=== PATIENT | female | born 1980 | race Caucasian/White ===

== ENCOUNTER 2019-09-20 08:47 | Emergency (ER) | payer OTHER, MEDICAID, SELFPAY ==
--- NOTE | ~2019-09-20 | XR_ITS ---
EXAMINATION: XR chest 2V DATE: 09/20/2019 09:02 INDICATION: Shortness of breath. Chest tightness. TECHNIQUE: Frontal and lateral views of the chest were obtained. COMPARISON: None. FINDINGS: The chest demonstrates clear lungs without pneumonia, pleural effusion, or pneumothorax. Th e heart size is normal. IMPRESSION: 1. No acute cardiopulmonary disease. Reviewed, dictated and finalized at location A.
[2019-09-20 08:50] VITALS: BP 135/82; PULSE 83; RESP 16; TEMP 36.5; O2SAT 100
--- NOTE | 2019-09-20 08:50 | ECG_ITS ---
Measurements Intervals Dana Rate: 78 P: -3 ME: 144 QRS: -9 QRSD: 98 T: -5 QT: 365 QTc: 416 Interpretive Statements SINUS RHYTHM VOLTAGE CRITERIA FOR LVH BORDERLINE T WAVE ABNORMALITY- INFERIOR LEADS BORDERLINE ECG Electronically Signed On 09-20-2019 8:57:45 CDT by Esau Saxena D.O.
[2019-09-20 09:03] LABS: Basophils Percent Auto 0.4 % (0.2-1.2); Eosinophils Percent Auto 0.3 % (0-4.4); Hematocrit 42.1 % (37.0-47.0); Hemoglobin 13.9 g/dL (12.0-15.0); Immature Granulocyte Absolute 0.02 K/mm3 (0.00-0.031); Immature Granulocyte Percent A 0.3 % (0-0.5); Lymphocytes Absolute Auto 1.94 K/mm3 (0.9-3.2); Lymphocytes Percent Auto 27.6 % (18.3-44.2); Mean Corpuscular Volume 87.7 fl (80-100); Mean Platelet Volume 9.9 fl (7.4-10.4); Monocytes Absolute Auto 0.3 K/mm3 (0.1-0.6); Monocytes Percent Auto 3.8 % (2.6-8.5); Neutrophils Absolute Auto 4.7 K/mm3 (1.3-6.7); Neutrophils Percent Auto 67.6 % (45.5-73.1); Platelet Count Result 292 k/mm3 (150-375); Red Cell Distribution Width 12.7 % (11.5-14.5)
[2019-09-20 09:13] LABS: Prothrombin Time 12.7 Seconds (11.1-14.7)
[2019-09-20 09:14] LABS: Blood Urea Nitrogen 10 mg/dL (7-17); Carbon Dioxide 25 mmol/L (22-30); Chloride 104 mmol/L (98-107); Estimated Glomerular Filt Rate > 60; Glucose 145 mg/dL (65-105); Partial Thromboplastin Time 25.8 SECONDS (22.3-36.8); Potassium 3.4 mmol/L (3.4-5.0); Sodium 139 mmol/L (137-145)
[2019-09-20 09:25] LABS: Troponin I < 0.012 ng/mL (0.000-0.034)
[2019-09-20] MEDS: BELLADONNA ALK/PHENOB ELIX 10 ML, MAG HYDROX/ALUMINUM HYD/SIMETH 30 ML, LIDOCAINE HCL 2... PO (09:34)
--- NOTE | 2019-09-20 10:02 | ED.SOB ---
HPI - SOB/Dyspnea General Chief Complaint: Shortness of Breath/Dyspnea Stated Complaint: SOB Time Seen by Provider: 09/20/19 08:48 History of Present Illness HPI Narrative: Patient is a 38-year-old female who presents the ER with chest pain. Intermittent over the last 2 days associated with shortness of breath. Reports the pain is burning and central. It was worse with laying down last night. No sweats or chills related to this. Patient reports she is had a lot of stress recently because her boyfriend is hospitalized do not hospital with respiratory failure from asthma may not make it. Not associated with eating or exertion. Related Data Allergies Allergy/AdvReac Type Severity Reaction Status Date / Time No Known Allergies Allergy Verified 09/20/19 09:49 Review of Systems Review of Systems: All systems reviewed & are unremarkable except as noted in HPI and below Constitutional: Constitutional: Denies chills, Denies fever(s) and Denies weakness ENT: Denies nasal congestion and Denies sore throat Cardiovascular: Cardiovascular: Reports chest pain, Denies rapid heart rate and Denies radiating jaw, neck or arm pain Respiratory: Respiratory: Denies cough, Reports dyspnea and Denies wheezing Gastrointestinal: Gastrointestinal: Denies abdominal pain, Denies nausea and Denies vomiting PMFSH Past Medical History Medical History (Updated 09/20/19 @ 11:56 by Dinesh Nieto MD) Chronic back pain Surgical History Surgical History (Updated 09/20/19 @ 11:52 by Dinesh Nieto MD) No significant past surgical history Social History Social History (Updated 09/20/19 @ 11:53 by Dinesh Nieto MD) Smoking status: Never smoker Gender identity (if verbalized by the patient): Female Exam Narrative: Exam Narrative: GENERAL: Well-appearing, well-nourished, and in no acute distress. HEAD: Normocephalic, atraumatic. ENT: Mucous membranes moist. CHEST: Clear to auscultation. No respiratory distress. Mild tenderness the right anterior chest wall with light palpation. HEART: Regular rate and rhythm. No murmur heard. Normal peripheral pulses. ABDOMEN: Soft, nontender, nondistended. EXTREMITIES: Normal range of motion. No edema. SKIN: Warm, dry, no rash. NEURO: Alert and oriented x3. Course Course Emergency Course: Pain resolved with GI cocktail. Discharge home. Omeprazole prescribed, patient takes diclofenac and is under stress which increases risk of possible ulcer formation. Vital Signs Vital signs: Vital Signs Temperature 97.7 F 09/20/19 08:50 Pulse Rate 83 09/20/19 08:50 Respiratory Rate 16 09/20/19 08:50 Blood Pressure 135/82 09/20/19 08:50 Pulse Oximetry 100 09/20/19 08:50 Temperature 97.6 F 09/20/19 11:05 Pulse Rate 77 09/20/19 11:05 Respiratory Rate 15 09/20/19 11:05 Blood Pressure 120/92 H 09/20/19 11:05 Pulse Oximetry 90 09/20/19 11:05 MDM - SOB/Dyspnea Lab Data Result diagrams: 09/20/19 08:56 09/20/19 08:56 Labs: Lab Results 09/20/19 09/20/19 09/20/19 Range/Units 08:56 08:56 08:56 WBC 7.0 (4.5-10.0) K/mm3 RBC 4.80 (4.2-5.4) M/mm3 Hgb 13.9 (12.0-15.0) g/dL Hct 42.1 (37.0-47.0) % MCV 87.7 (80-100) fl MCH 29.0 (26-34) pg MCHC 33.0 (32-36) g/dl RDW 12.7 (11.5-14.5) % Plt Count 292 (150-375) k/mm3 MPV 9.9 (7.4-10.4) fl Immature Gran % (Auto) 0.3 (0-0.5) % Neut % (Auto) 67.6 (45.5-73.1) % Lymph % (Auto) 27.6 (18.3-44.2) % [place] % (Auto) 3.8 (2.6-8.5) % Eos % (Auto) 0.3 (0-4.4) % Baso % (Auto) 0.4 (0.2-1.2) % Lymph # (Auto) 1.94 (0.9-3.2) K/mm3 [place] # (Auto) 0.3 (0.1-0.6) K/mm3 Eos # (Auto) 0.0 (0-0.3) K/mm3 Baso # (Auto) 0.0 (0.0-0.1) K/mm3 Abs Immat Gran (auto) 0.02 (0.00-0.031) K/mm3 Absolute Neuts (auto) 4.7 (1.3-6.7) K/mm3 Absolute Nucleated RBC 0.0 (0.0-0.012) K/mm3 Nucleated RBC % 0.0 (0.0-0.2
[2019-09-20 10:03] VITALS: BP 131/100; PULSE 78; RESP 16; TEMP 36.7; O2SAT 99
[2019-09-20 11:05] VITALS: BP 120/92; PULSE 77; RESP 15; TEMP 36.4; O2SAT 90
[2019-09-20 12:07] VITALS: BP 120/92; PULSE 77; RESP 17; O2SAT 98
[2019-09-20 12:25] LABS: Troponin I < 0.012 ng/mL (0.000-0.034)
== END 2019-09-20 12:07 | disposition home or self-care (01) ==
PROVIDERS: Emergency Provider Emergency Medicine
DX: R07.9 Chest pain, unspecified (principal); K21.9 Gastro-esophageal reflux disease without esophagitis; R94.31 Abnormal electrocardiogram [ECG] [EKG]
CPT/HCPCS: 36415; 71046; 80048; 84484; 85025; 85610; 85730; 93005; 99284; A9270

== ENCOUNTER 2020-08-28 18:43 | Emergency (ER) | payer OTHER, SELFPAY ==
--- NOTE | 2020-08-28 18:49 | ED.EAR ---
HPI - Ear Problem General Chief complaint: Ear Stated complaint: right ear pain Time Seen by Provider: 08/28/20 18:49 Source: patient and RN notes reviewed History of Present Illness HPI Narrative: Patient is a 39-year-old female who presents the urgent care with complaints of right ear pain. Patient states that it started at 3 PM today and she has not taken anything [id number] for the pain. Patient denies of any trauma or injury to the ear. Denies of any drainage from the ear or other upper respiratory symptoms. Denies of any fevers. Patient also reports of some decreased hearing. No other acute complaints. No acute distress noted. Patient aware of the plan of care. Some parts of this dictation were generated by voice recognition software and may contain typographical and/or grammatical inaccuracies. Related Data Home Medications Medication Instructions Recorded Confirmed cholecalciferol (vitamin D3) 08/28/20 cyclobenzaprine mg 08/28/20 diclofenac potassium 08/28/20 ergocalciferol (vitamin D2) 08/28/20 Allergies Allergy/AdvReac Type Severity Reaction Status Date / Time No Known Allergies Allergy Verified 08/28/20 18:52 Review of Systems Review of Systems: Narrative: CONSTITUTIONAL: Denies fever, chills, or sweats. EYES: Denies visual changes, redness, or discharge. ENT: Denies rhinorrhea, congestion, sore throat. Reports of right otalgia with decreased hearing CARDIOVASCULAR: Denies chest pain, palpitations, or edema. RESPIRATORY: Denies cough or dyspnea. GASTROINTESTINAL: Denies abdominal pain, nausea, vomiting, or diarrhea. GENITOURINARY: Denies dysuria or hematuria. SKIN: Denies rash or itching. MUSCULOSKELETAL: Denies back pain, joint pain, or myalgia. NEUROLOGIC: Denies headache, numbness, or weakness. All other systems reviewed are negative, except as documented in HPI. [facility] Past Medical History Medical History (Updated 08/28/20 @ 19:07 by KAYLEE Winters) Chronic back pain Surgical History Surgical History (Updated 09/20/19 @ 11:52 by Dinesh Nieto MD) No significant past surgical history Social History Social History (Updated 09/20/19 @ 11:53 by Dinesh Nieto MD) Smoking status: Never smoker Gender identity (if verbalized by the patient): Female Comments At the time of my signature, I reviewed and agree with the nursing past medical, surgical, social, and family history. There is no relevant family history pertinent to the patient complaint. Exam Narrative: Exam Narrative: GENERAL: This is a well-nourished, well-developed patient, in no apparent distress. HEAD: normocephalic, atraumatic. EYES: PERRL. Sclera clear/white. Vision is grossly intact. EARS: External ears normal, auditory canals clear and without drainage, unable to visualize right TM due to cerumen impaction, left TMs normal without perforation. Hearing grossly intact. NOSE: External nose normal with no obvious nasal discharge, nares without redness, no rhinorrhea. THROAT: Mucous membranes moist NECK: Neck supple SKIN: warm, intact with no suspicious lesions or rash, good texture and turgor. NEURO: awake, alert, and oriented to person, place and time. There were no obvious focal neurologic abnormalities. EXTREMITIES: No clubbing, cyanosis, or edema. Course Vital Signs Vital signs: Vital Signs Temperature 97.0 F L 08/28/20 18:50 Pulse Rate 114 H 08/28/20 18:50 Respiratory Rate 22 H 08/28/20 18:50 Blood Pressure 145/94 H 08/28/20 18:50 Pulse Oximetry 92 08/28/20 18:50 Temperature 97.0 F L 08/28/20 18:50 Pulse Rate 114 H 08/28/20 18:50 Respiratory Rate 22 H 08/28/20 18:50 Blood Pressure 145/94 H 08/28/20 18:50 Pulse Oximetry 92 08/28/20 18:50 Reviewed-patient is informed that they may have pre-hypertension or hypertension based on a blood pressure reading in the department. I recommend the patient call the primary care provider listed on their discharge ins
[2020-08-28 18:50] VITALS: BP 145/94; PULSE 114; RESP 22; TEMP 36.1; O2SAT 92
== END 2020-08-28 19:12 | disposition home or self-care (01) ==
PROVIDERS: Emergency Provider Nurse Practitioner Family; PCP Nurse Practitioner Adult Health
DX: H61.21 Impacted cerumen, right ear (principal)
CPT/HCPCS: 69209; 99212; G0463